=== PATIENT | male | born 1995 | race Caucasian/White ===

== ENCOUNTER 2018-10-27 19:11 | Observation (INO) ==
[2018-10-27] MEDS: SODIUM CHLORIDE 0.9% 1000ML 1,000 ML IV SCH (20:26)
[2018-10-27 20:32] LABS: Basophils # (auto) 0.02 K/uL (0-0.2); Basophils % (auto) 0.1 %; Hemoglobin 16.4 g/dL (14.0-18.0); Immature Granulocytes # (auto) 0.04 K/uL (0.00-0.02); Immature Granulocytes % (auto) 0.3 %; Lymphocytes # (auto) 1.25 K/uL (1.2-3.4); Lymphocytes % (auto) 8.6 %; Mean Corpuscular Hgb Conc 35.7 g/dL (32-36); Mean Corpuscular Volume 84.6 fL (80-100); Mean Platelet Volume 9.7 fL (7.4-10.4); Monocytes # (auto) 1.17 K/uL (0.11-0.59); Monocytes % (auto) 8.1 %; Neutrophils # (auto) 12.05 K/uL (1.4-6.5); Neutrophils % (auto) 82.9 %; Platelet Count 218 K/uL (130-400); RDW Coefficient of Variation 13.8 % (11.5-14.5); RDW Standard Deviation 42.1 fL (36.4-46.3); Red Blood Count 5.44 M/uL (4.7-6.1); White Blood Count 14.53 K/uL (4.8-10.8)
[2018-10-27 20:54] LABS: Albumin Level 5.7 gm/dl (3.4-5.0); BUN Creatinine Ratio 11.7 (10-20); Calcium 10.5 mg/dl (8.5-10.1); Creatinine Clr Calc Pharmacy 23.9 ml/min; Est GFR (African American) 36.7; Est GFR (Non-African American) 31.6; Potassium 4.4 mmol/L (3.5-5.1)
[2018-10-27 20:57] LABS: Albumin Globulin Ratio 1.6 (0.9-2); Bilirubin,Total 0.9 mg/dl (0.2-1); Globulin 3.6 gm/dl (2.5-4.0); Total Protein 9.3 gm/dl (6.4-8.2)
--- NOTE | 2018-10-27 21:32 | CT Scan Report ---
CT SCAN OF THE ABDOMEN AND PELVIS WITHOUT IV CONTRAST CLINICAL HISTORY: Acute renal insufficiency. COMPARISON STUDY: No priors. TECHNIQUE: CT scan of the abdomen and pelvis is performed from the lung bases to the proximal femora. Images are reviewed in the axial, sagittal, and coronal planes. IV contrast was not administered for this examination due to diminished renal function. Note that the examination is suboptimal without o ral and IV contrast. A dose lowering technique was utilized adhering to the principles of ALARA. CT DOSE: 255.45 mGy.cm FINDINGS: Lung bases: The heart is normal in size and without pericardial effusion. The lung bases are clear. Liver: The unenhanced liver is normal in size, contour, and attenuation. There is no intrahepatic israel iary ductal dilatation. Gallbladder: Unremarkable. Spleen: Normal in size and attenuation. Pancreas: Unremarkable. Adrenal glands: Unremarkable. Kidneys: The unenhanced kidneys are normal in size and without hydronephrosis. There are no renal [place] identified. There is no evidence of contour deforming renal mass lesion. Abdominal vasculature: The abdominal aorta is normal in course and caliber. Bowel: The small bowel and colon are normal in course and caliber. The appendix is normal as visuali zed. Peritoneum: There is no intraperitoneal free air or abdominal ascites. Lymphadenopathy: None. Pelvic viscera: The bladder, prostate, and seminal vesicles are normal as imaged. Skeletal structures: There are bilateral pars defects at L5 with minimal anterolisthesis at L5-S1. No lytic or blastic lesions are seen. IMPRESSION: 1. There are no acute infectious or inflammatory findings in the abdomen or pelvis. 2. The kidneys are normal in size and without hydronephrosis. Electronically signed by: Servando Lassiter M.D. 10/27/2018 9:30 PM
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
[2018-10-28] MEDS ORDERED: ONDANSETRON INJ 2 MG/ML 2 ML VIAL IV PRN (00:13)
[2018-10-28] MEDS ORDERED: ACETAMINOPHEN 325 MG TAB PO PRN (00:13)
[2018-10-28] MEDS: SODIUM CHLORIDE 0.9% 1000ML 1,000 ML IV SCH ×4 (00:24→15:09)
[2018-10-28 03:29] LABS: Appearance Urine Cloudy (Clear); Bacteria Urine Automated Negative (Negative); Bilirubin Urine Negative (Negative); Blood Urine Negative (Negative); Color Urine Yellow; Epithelial Cell Urine Auto >30 /lpf (0-5); Glucose Urine UA Negative (Negative); Ketones Urine 1+ (Negative); Leukocyte Esterase Urine Negative (Negative); Nitrite Urine Negative (Negative); Protein Urine Trace (Negative); RBC Urine Automated 0-4 /hpf (0-4); Specific Gravity Urine 1.019 (1.000-1.030); Urobilinogen Urine Negative (Negative); pH Urine 5.5 (4.5-7.5)
[2018-10-28 03:52] LABS: Cast Urine Automated >30 /lpf (0-5); Mucus Urine Present (None Prsent)
[2018-10-28 05:58] LABS: Basophils # (auto) 0.03 K/uL (0-0.2); Basophils % (auto) 0.3 %; Eosinophils # (auto) 0.26 K/uL (0-0.5); Eosinophils % (auto) 2.5 %; Hemoglobin 13.6 g/dL (14.0-18.0); Immature Granulocytes # (auto) 0.02 K/uL (0.00-0.02); Immature Granulocytes % (auto) 0.2 %; Lymphocytes # (auto) 3.57 K/uL (1.2-3.4); Lymphocytes % (auto) 34.4 %; Mean Corpuscular Hgb Conc 34.9 g/dL (32-36); Mean Corpuscular Volume 84.8 fL (80-100); Mean Platelet Volume 10.1 fL (7.4-10.4); Monocytes # (auto) 1.21 K/uL (0.11-0.59); Monocytes % (auto) 11.6 %; Platelet Count 192 K/uL (130-400); RDW Coefficient of Variation 13.9 % (11.5-14.5); RDW Standard Deviation 42.6 fL (36.4-46.3); White Blood Count 10.39 K/uL (4.8-10.8)
[2018-10-28 06:35] LABS: BUN Creatinine Ratio 29.4 (10-20); Calcium 8.9 mg/dl (8.5-10.1); Creatinine Clr Calc Pharmacy 66.2 ml/min; Est GFR (African American) 94.4; Est GFR (Non-African American) 81.4; Magnesium 2.4 mg/dl (1.8-2.4); Potassium 3.8 mmol/L (3.5-5.1)
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
[2018-10-28 09:34] LABS: Amphetamines+Metham, Urine Pos (Neg); Barbiturates, Urine Neg (Neg); Benzodiazepine, Urine Neg (Neg); Cocaine, Urine Neg (Neg); MDMA (Ecstacy), Urine Pos (Neg); Methadone, Urine Neg (Neg); Opiate, Urine Neg (Neg); Phencyclidine, Urine Neg (Neg)
--- NOTE | 2018-10-28 15:25 | Hospitalist Progress Note ---
Date of Service October 28, 2018 Assessment & Plan (1) Acute renal failure: Admitted with dehydration with symptoms including dizziness, weakness and tachycardia Creatinine was noted to be very high at 2.71 with BUN 32 Received intravenous fluid Creatinine normalized this morning and symptoms resolved Advised to stay tonight, drink more fluid and repeat PRP in the morning before discharge Urine tox screen was positive for meth amphetamine and ecstasy Used methamphetamine last week but denies using of any ecstasy No symptoms at this time Advised to quit taking dose drugs Present on Admission?: Yes (2) Bipolar disorder: See the psychiatrist around [facility] Saw her last time last month Has had some issues last night but resolved this morning Will not make any change of his antipsychotic medications (3) Leukocytosis: Secondary to stress Doubt any infection Has been normalized Discussed with the patient and the Was agreeable to stay in the hospital tonight Send him home tomorrow Subjective 10/28 The patient was seen and examined the medical floor He was admitted with acute symptomatic dehydration and has been ongoing use of meth amphetamine Noted to be tachycardic and dizzy on admission Symptoms have resolved Advised to continue more fluid orally, ambulate and likely be discharged tomorrow Review of Systems Review of Systems: All systems reviewed and are unremarkable except as noted below Psychiatric: Has bipolar disorder, minor issues reported to happen last night. Asymptomatic this morning Physical Exam Physical Exam: No apparent distress at rest Constitutional: + thin; no acute distress and not ill appearing Eyes: PERRL, conjunctivae normal, anicteric sclerae ENMT: external ear and nose normal, oropharynx normal Neck: trachea midline, no thyromegaly Respiratory: normal respiratory effort; no respiratory distress Cardiovascular: Rate/Rhythm: regular rate and regular rhythm Extremities: no edema Gastrointestinal (Abdomen): Inspection/Auscultation: abdomen normal to inspection Percussion/Palpation: abdomen soft Musculoskeletal: No acute arthritis in any joints Skin: Chronic ischemic changes in upper extremities-related to his work Neurologic: Alert, awake and oriented x3 Psychiatric: Speech: normal rate/rhythm/volume of speech Affect: euthymic affect Judgement: good judgement Denies any significant bipolar symptoms Lymphatic: no cervical or axillary lymphadenopathy Results & Data Vital Signs (Past 12 Hours) Vital Signs Temp Pulse Resp BP Pulse Ox 10/28/18 08:00 36.7 C 89 19 112/64 98 10/28/18 07:41 36.6 C 67 19 112/64 97 Laboratory Results Short CBC 10/27/18 10/28/18 Range/Units 20:19 05:25 WBC 14.53 H 10.39 (4.8-10.8) K/uL Hgb 16.4 13.6 L (14.0-18.0) g/dL Hct 46.0 39.0 L (42-52) % Plt Count 218 192 (130-400) K/uL BMP 10/27/18 10/28/18 20:19 05:25 Sodium 139 140 Potassium 4.4 3.8 Chloride 102 107 Carbon Dioxide 27 26 BUN 32 H 36 H Creatinine 2.71 H 1.24 D Glucose 98 73 Calcium 10.5 H 8.9 D Liver Function 10/27/18 Range/Units 20:19 Total Bilirubin 0.9 (0.2-1) mg/dl AST 21 (15-37) U/L ALT 25 (12-78) U/L Alkaline Phosphatase 115 (45-117) U/L Albumin 5.7 H (3.4-5.0) gm/dl Urine 10/28/18 Range/Units 02:20 Urine Color Yellow Urine Appearance Cloudy A (Clear) Urine pH 5.5 (4.5-7.5) Ur Specific Ralph 1.019 (1.000-1.030) Urine Protein Trace H (Negative) Urine Glucose (UA) Negative (Negative) Medications Administered Current Inpatient Medications Acetaminophen (Tylenol) 650 mg PO Q4H PRN PRN Reason: pain/fever Stop: 11/27/18 00:12 Lamotrigine (Lamictal) 200 mg PO HS SARAHI Stop: 11/27/18 20:59 Ondansetron HCl (Zofran) 4 mg IV Q6H PRN PRN Reason: Nausea Stop: 11/27/18 00:12 (1) Acute renal failure Acute renal failure type: unspecified Qualified Code(s): N17.9 - Acute kidney failure, unspecified (2) Leukocytosis Leukocytosis type: unspecified Qualified Code(s): D72.829 - Elevated white blood cell count, unspecified
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
[2018-10-28] MEDS ORDERED: lamoTRIgine 100 MG TAB PO SCH (21:00)
[2018-11-01 12:51] LABS: Amphetamine Urine, Confirm 15800 NG/ML (CUTOFF=250); Methamphetamine, Ur Confirm >25000 NG/ML (CUTOFF=250)
== END 2018-10-28 17:31 | disposition left against medical advice (07) ==
LOC: ED 19:11 → 4W 23:05 → INTOOBSV 23:05 → 4W 23:58